=== PATIENT | female | born 1960 | race Caucasian/White ===

== ENCOUNTER → 2018-04-08 | Day surgery (SDC) | payer BC ==
--- NOTE | 2018-04-11 17:12 | PATH ---
Surgical Pathology Report Patient Name: LIAN SHELLEY [facility]. Rec. #: [id number] /Age/Gender: 1960 (Age: 57) / F Account: [id number] Location: [facility] BREAST CENT Taken: 04/08/2018 Received: 04/08/2018 Reported: 04/11/2018 Physicians: Ashley Chao M.D. Specimen(s) Received RIGHT BREAST 6:00 CORE BIOPSY Clinical History Ultrasound findings: Suspicious Hyperechoic mass with cystic center Final Diagnosis BREAST, RIGHT, 6:00, CORE BIOPSY: PREDOMINANTLY FIBROADIPOSE TISSUE WITH RARE MINUTE FOCI OF FAT NECROSIS. SCANT BENIGN GLANDULAR BREAST PARENCHYMA. Comment: Correlation with radiologic findings is recommended. Electronically Signed Juana Pennington M.D. Gross Description Received in formalin, labeled "6:00 right breast" and multiple fragments of yellow and light arvizu tissue admixed with blood clot having in aggregate 1.8 x 1.5 x 0.2 cm. Entirely submitted in two cassettes. Time to formalin fixation: 2 minutes Total formalin fixation time: Approximately 6 hours AE/04/11/2018 ebram/04/11/2018
== END | disposition home or self-care (01) ==
LOC: FRADUS-SUR 12:52
PROVIDERS: ATTEND Obstetrics & Gynecology
PROC: 0HBT3ZX Excision of Right Breast, Percutaneous Approach, Diagnostic (ICD-10-PCS; principal; 2018-04-08)
DX: N64.89 Other specified disorders of breast (principal); N63.10 Unspecified lump in the right breast, unspecified quadrant
CPT/HCPCS: 19083; 77065-TC; 87899; 88305-TC; A4648